=== PATIENT | female | born 1935 | race Caucasian/White ===

== ENCOUNTER → 2016-04-29 | Outpatient (CLI) | payer OTHER ==
[2010-07-19 13:50] VITALS: BP 116/52
[2016-04-29 08:47] LABS: BASOPHILS # (AUTO) 0.05 10*3/UL; EOSINOPHILS % (AUTO) 2.6 % (0-8); HEMATOCRIT 43.3 % (37.0-47.0); HEMOGLOBIN 15.3 g/dL (12.0-16.0); IMM GRAN % (AUTO) 0 % (0-5); IMM GRAN# (AUTO) 0 10*3/UL; LYMPHOCYTES # (AUTO) 1.85 10*3/uL; MEAN CORPUSCULAR HEMOGLOBIN 31.7 PG (27-31); MEAN CORPUSCULAR HGB CONC 35.3 g/dL (33-37); MEAN PLATELET VOLUME 11.6 FL (7.4-12.2); MONOCYTES # (AUTO) 0.77 10*3/UL (0.3-0.8); MONOCYTES % (AUTO) 15.4 % (5-15); RDW COEFFICIENT OF VARIATION 12.8 % (11.5-14.5); RED BLOOD COUNT 4.83 10^6/uL (4.20-5.40)
[2016-04-29 08:56] LABS: PLATELET MORPHOLOGY COMMENT NORMAL MORPHOLOGY (NORM)
[2016-04-29 09:04] LABS: BILIRUBIN,TOTAL 0.9 mg/dL (0.3-1.2); BUN/CREATININE RATIO 17.14 (6-20); CALCIUM 10.1 mg/dL (8.7-10.7); CREATININE 0.7 mg/dL (0.50-1.20); LDL CHOLESTEROL,CALCULATED 90.4 mg/dL; POTASSIUM 3.9 meq/L (3.8-5.2); TOTAL PROTEIN 7.9 g/dL (6.1-8.0)
== END ==
LOC: LAB 08:13
PROVIDERS: ATTEND Nurse Practitioner Family
DX: E11.9 Type 2 diabetes mellitus without complications (principal); E78.5 Hyperlipidemia, unspecified; E03.9 Hypothyroidism, unspecified; M81.0 Age-related osteoporosis without current pathological fracture; F41.9 Anxiety disorder, unspecified
CPT/HCPCS: 36415; 80053; 80061; 82306; 83036; 84443; 85025

== ENCOUNTER → 2016-05-09 | Outpatient (CLI) | payer OTHER ==
[2010-07-19 13:50] VITALS: BP 116/52
--- NOTE | 2016-05-09 10:37 | DI ---
CT BONE DENSITOMETRY OF THE SPINE AND HIP, 05/09/2016 9:45 AM : Clinical History: Asymptomatic post menopausal patient. Screening. Previous Exam: 01/12/2004; 10/03/2009; 10/25/2011. 3D Quantitative CT (QCT) Bone Mineral Densitometry: The [place] scans are normal. Low dose scans are sampled through the midbodies of L1 and L2. Average bone mineral density (BMD) is 72.7 mg/mL corresponding to a volumetric T-score of -3.7, and Z-score o f 0.0. 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 The previous studies gave bone mineral densities of 70.9, 56.5, and 70.[address] X-Ray Absorptiometry (CTXA) Bone Mineral Densitometry of the Left Hip: Total hip BMD: 581 mg/cm2 T-score: -2.9 Z-score: -0.7 Femoral neck BMD: 516 mg/cm2 T-score: -2.5 Z-score: -0.5 READIN. The QCT lumbar spine BMD value by ACR's 3D volumetric to 2D areal conversion categorizes this pat ient as having osteoporosis of the lumbar spine. The QCT spine T-score is -3.7. 2. The CTXA total hip and femoral neck BMD T-scores are -2.9 and -2.5, respectively. The left total hip T-score indicates this patient has osteoporosis of the total hip.
== END ==
LOC: CT 09:41
PROVIDERS: ATTEND Nurse Practitioner Family
DX: Z78.0 Asymptomatic menopausal state (principal); Z13.820 Encounter for screening for osteoporosis
CPT/HCPCS: 77078

== ENCOUNTER → 2016-05-09 | Outpatient (CLI) | payer OTHER ==
[2010-07-19 13:50] VITALS: BP 116/52
--- NOTE | 2016-05-09 12:07 | DI ---
BILATERAL SCREENING FULL FIELD DIGITAL MAMMOGRAMS, 05/09/2016 9:45 AM: Clinical History: Screening. Previous Exam: 10/05/2010; 10/25/2011; 03/09/2014. Routine mediolateral oblique and craniocaudal views of each breast are obtained. Breast tissue densit y is rated as having scattered areas of fibroglandular breast tissue. There are no masses. There are no abnormal calcifications. Skin contours, nipples, and lower axillary regions are normal. These mamm ograms were evaluated and reviewed with CAD software. Follow Up: Optionally every 1-2 years. BIRADS: 1. Negative exam. Reading: Negative.
== END ==
LOC: MAMMO 09:39
PROVIDERS: ATTEND Nurse Practitioner Family
DX: Z12.31 Encounter for screening mammogram for malignant neoplasm of breast (principal)
CPT/HCPCS: 77078; G0202

== ENCOUNTER → 2016-07-01 | Outpatient (CLI) | payer OTHER ==
[2010-07-19 13:50] VITALS: BP 116/52
[2016-07-01 08:14] LABS: CHOL/HDL RATIO 4.28 RATIO (0-4.0); LDL CHOLESTEROL,CALCULATED 81.8 mg/dL
[2016-07-01 09:30] LABS: HEMOGLOBIN A1C 6.54 % (4.2-6.0)
== END ==
LOC: LAB 07:52
PROVIDERS: ATTEND Nurse Practitioner Family
DX: E03.9 Hypothyroidism, unspecified (principal); E78.5 Hyperlipidemia, unspecified; E11.9 Type 2 diabetes mellitus without complications
CPT/HCPCS: 36415; 80061; 83036; 84443